=== PATIENT | female | born 1955 | race American Indian/Alaskan Native ===

== ENCOUNTER 2024-03-24 02:24 | Emergency (ER) | payer OTHER ==
[~2024-03-24] VITALS: Ht 165.1 cm; Wt 45.5 kg
[~2024-03-24 02:24] MED LIST: BUDE0.5A11 IH; CARV6.2555 PO; DULO-31 PO; EMPA10TA PO; FERR325T28 PO; GABA-530 PO; HYDR50TA46 PO; ISOS120T13 PO; LEVO75TA7 PO; MELA1TAB28 PO; NORM2DIS8; PANT40TA54 PO; RIFA550T PO; SPIR25TA5 PO; THY15T PO; VANC1VIA38 IV
[2024-03-24 02:35] VITALS: TEMP 98.8
[2024-03-24] MEDS ORDERED: HYDR-3965 PO (05:12)
[2024-03-24] MEDS: HYDROcodone/acetaminophen 5mg/325mg tablet PO ONE (05:23)
[2024-03-24 05:28] VITALS: BP 136/69; PULSE 92; RESP 16; O2SAT 96
== END 2024-03-24 05:26 | disposition home or self-care (01) ==
LOC: ER 02:25
DX: M24.422 Recurrent dislocation, left elbow (principal); J44.9 Chronic obstructive pulmonary disease, unspecified
CPT/HCPCS: 73080; 99283